=== PATIENT | male | born 1960 | race Caucasian/White ===

== ENCOUNTER 2022-08-26 11:20 | Emergency (ER) | payer OTHER ==
[2022-08-26] MEDS ORDERED: Bupivacaine 0.25% 10 ML VIAL ONE (13:42)
[2022-08-27] MEDS ORDERED: Ondansetron PF 4 MG/2 ML Vial ONE (20:00)
[2022-08-27] MEDS ORDERED: PHENYLEPHRINE-NS 100 MCG/ML 10 ML SYRINGE ONE (20:00)
[2022-08-27] MEDS ORDERED: PROPOFOL 200 MG/20 ML VIAL ONE (20:00)
[2022-08-27] MEDS ORDERED: Dexamethasone 20 MG/5 ML VIAL ONE (20:00)
[2022-08-27] MEDS ORDERED: Lidocaine 1% PF 5 ML VIAL ONE (20:00)
== END 2022-08-26 14:26 | disposition home or self-care (01) ==
LOC: ERS 11:20
DX: S68.621A Partial traumatic transphalangeal amputation of left index finger, initial encounter (principal); F17.210 Nicotine dependence, cigarettes, uncomplicated; W31.2XXA Contact with powered woodworking and forming machines, initial encounter
CPT/HCPCS: 64450; S0020

== ENCOUNTER → 2022-08-27 | Day surgery (SDC) | payer OTHER ==
[~2022-08-27] MED LIST: Bacitracin Zinc Ointment 30 gm TUBE ONE; Bupivacaine PF 0.5% 30 ML VIAL ONE; CEFAZOLIN 2 GM VIAL ONE; Fentanyl 250 MCG/5 ML VIAL ONE; Ketorolac Tromethamine 30 MG/ML VIAL ONE; Mineral Oil Sterile 10 ML VIAL ONE; Neomycin-Polymyxin 1 ML AMP ONE; Sodium Chloride 0.9% 100 ML ONE
== END | disposition home or self-care (01) ==
LOC: SDC 15:50
PROVIDERS: ATTEND Orthopaedic Surgery Hand Surgery
PROC: 0HQQXZZ Repair Finger Nail, External Approach (ICD-10-PCS; principal; 2022-08-27)
PROC: 0PBV0ZZ Excision of Left Finger Phalanx, Open Approach (ICD-10-PCS; principal; 2022-08-27)
PROC: 0HRGX73 Replacement of Left Hand Skin with Autologous Tissue Substitute, Full Thickness, External Approach (ICD-10-PCS; principal; 2022-08-27)
DX: S68.621A Partial traumatic transphalangeal amputation of left index finger, initial encounter (principal); Z88.5 Allergy status to narcotic agent; W31.2XXA Contact with powered woodworking and forming machines, initial encounter
CPT/HCPCS: J1100; J1885; J2405; J2704; J3010; J3490; S0020